=== PATIENT | female | born 1985 | race Caucasian/White ===

== ENCOUNTER 2017-04-04 17:01 | Emergency (ER) | payer OTHER ==
[~2017-04-04] VITALS: Ht 162.6 cm; Wt 90.7 kg
[~2017-04-04 17:01] MED LIST: AMBIEN 5 MG TABL5 M1 PO; ANTIVERT25 MG PO; AUGMENTIN 875875 MG PO; AZITHROMYCIN250 MG PO; AZO95 MG; BIRTH CONTROL; CITRATE OF MAG296 ML PO; CLARITIN10 M2 PO; COLACE100 MG PO; CORTISPORIN OTI10 M2 OTIC; DIFLUCAN150 M1 PO; FIORICET 50-321 EACH PO; FLAGYL500 M1 PO; FLAGYL500 MG PO; FLONASE 0.05%50 MCG NASAL; GABAPENTIN100 MG PO; GARAMYCIN5 ML OP; HALOPERIDOL 1 MG1 MG PO; IBUPROFEN 800800 M1 PO; LAMICTAL; MACROBID 100 M100 M1 PO; MACROBID 100 M100 M2 PO; NORCO 5-325 TA1 EACH PO; ONDANSETRON HCL4 M2 PO; SERTRALINE HCL100 MG PO; TRAMADOL 50 MG50 MG PO; TRILEPTAL 300300 MG PO; TRILEPTAL150 MG PO; XANAX 0.25 MG0.25 MG PO; XANAX 0.5 MG0.5 MG PO; ZOFRAN4 MG PO; ZOLOFT 50 MG TA50 M1 PO
[2017-04-04 18:56] LABS: ABSOLUTE NEUTROPHILS 4.3 thou/uL (1.4-8.2); BASOPHILS 0.2 % (0.0-2.0); HEMATOCRIT 38.8 % (37.0-47.0); HEMOGLOBIN 13.4 gm/dL (12.0-15.0); LYMPHOCYTES 31.1 % (24.0-44.0); MCH 32.1 pg (26.0-34.0); MCHC 34.6 g/dL (28.0-37.0); PLATELET COUNT 239 thou/uL (150-400); POLYS 61.7 % (36.0-66.0); RBC 4.17 mil/uL (4.20-5.00); RDW 12.8 % (10.5-14.5)
[2017-04-04 19:05] LABS: CALCIUM 8.9 mg/dL (8.5-10.1); CREATININE 0.8 mg/dL (0.6-1.0); POTASSIUM 3.3 mmol/L (3.5-5.1)
[2017-04-04] MEDS ORDERED: ZOLPIDEM TARTRA10 MG PO (19:07)
[2017-04-04] MEDS ORDERED: ADDERALL 20 MG20 MG PO (19:07)
[2017-04-04] MEDS ORDERED: NEURONTIN 300300 M1 PO (19:08)
[2017-04-04] MEDS ORDERED: CETIRIZINE HCL10 MG PO (19:08)
[2017-04-04] MEDS ORDERED: RANITIDINE HCL300 MG PO (19:09)
[2017-04-04 19:11] LABS: ALBUMIN 4.1 g/dL (3.4-5.0); TOTAL BILIRUBIN 0.2 mg/dL (<0.1-1.0); TOTAL PROTEIN 7.1 g/dL (6.4-8.2)
[2017-04-04 19:22] LABS: URINE BILIRUBIN NEGATIVE (Negative); URINE BLOOD NEGATIVE (Negative); URINE CLARITY CLEAR; URINE COLOR YELLOW; URINE GLUCOSE-RANDOM* NEGATIVE (Negative); URINE KETONES NEGATIVE (Negative); URINE LEUKOCYTES NEGATIVE (Negative); URINE NITRITE NEGATIVE (Negative); URINE PROTEIN (DIPSTICK) NEGATIVE (Negative); URINE SPECIFIC GRAVITY 1.015 (1.005-1.035); URINE UROBILINOGEN 0.2 E.U./dl (0.2-1.0)
[2017-04-04 20:08] LABS: AMP/METHAMP Negative (Negative); BARBITURATES Negative (Negative); BENZODIAZEPINES POSITIVE (Negative); COCAINE Negative (Negative); METHADONE Negative (Negative); OPIATES Negative (Negative); PCP Negative (Negative)
[2017-04-04] MEDS ORDERED: COLACE100 MG PO (21:24)
[2017-04-04] MEDS ORDERED: BENTYL 20 MG TA20 M1 PO (21:24)
[2017-04-04] MEDS ORDERED: ZOFRAN ODT8 MG PO (22:28)
[2017-12-08] MEDS ORDERED: CEFDINIR300 MG PO (20:55)
== END 2017-04-04 22:45 | disposition home or self-care (01) ==
LOC: ER 17:01
PROVIDERS: Emergency Medicine; Physician Assistant
DX: R10.11 Right upper quadrant pain (principal); F41.0 Panic disorder [episodic paroxysmal anxiety]; F31.9 Bipolar disorder, unspecified; F17.210 Nicotine dependence, cigarettes, uncomplicated; Z88.1 Allergy status to other antibiotic agents; Z88.6 Allergy status to analgesic agent

== ENCOUNTER 2017-08-28 15:19 | Emergency (ER) | payer OTHER ==
[~2017-08-28] VITALS: Ht 162.6 cm; Wt 90.7 kg
[~2017-08-28 15:19] MED LIST changes: +ADDERALL 20 MG20 MG PO; +BENTYL 20 MG TA20 M1 PO; +CETIRIZINE HCL10 MG PO; +NEURONTIN 300300 M1 PO; +RANITIDINE HCL300 MG PO; +ZOFRAN ODT8 MG PO; +ZOLPIDEM TARTRA10 MG PO
[2017-08-28] MEDS ORDERED: MOBIC15 MG PO (16:06)
[2017-08-28] MEDS ORDERED: ZOFRAN ODT4 MG PO (16:07)
[2017-08-28 16:32] VITALS: BP 146/96
== END 2017-08-28 16:20 | disposition home or self-care (01) ==
LOC: ER 15:19
DX: J01.90 Acute sinusitis, unspecified (principal); H92.02 Otalgia, left ear; R13.10 Dysphagia, unspecified; M54.2 Cervicalgia; F31.9 Bipolar disorder, unspecified; Z88.1 Allergy status to other antibiotic agents; Z88.6 Allergy status to analgesic agent; Z88.8 Allergy status to other drugs, medicaments and biological substances

== ENCOUNTER 2017-12-17 01:03 | Emergency (ER) | payer OTHER ==
[~2017-12-17] VITALS: Ht 162.6 cm; Wt 90.7 kg
--- NOTE | ~2017-12-17 | EKG ---
[address] [place] [address] ELECTROCARDIOGRAM REPORT Name: KIERRA HANKINS Room #: DEP ELHAM Espino#: [id number] Admission: 12/17/17 Attend Phys: Discharge: 12/17/17 Date of : 87 Report #: [id number] THIS REPORT FOR: //name// [facility] ED Test Date: 2017-12-17 Test Time: 02:05:34 Pat Name: KIERRA HANKINS Department: Room: Gender: F Construction Safety Manager: ELIDA : 1985 Requested By: Sukhjinder Clemens Order Number: [id number] MD: Luis Portillo Measurements Intervals [place] Rate: 72 P: 49 NM: 159 QRS: -20 QRSD: 88 T: 2 QT: 391 QTc: 428 Interpretive Statements Sinus rhythm Borderline left axis deviation Low voltage, precordial leads Probable anteroseptal infarct, old Compared to ECG 02/13/2004 13:17:51 Low QRS voltage now present Poor R-wave progression no longer present Myocardial infarct finding still present Electronically Signed On 12-18-2017 17:37:56 CDT by Luis Portillo [email or web address] <ELECTRONICALLY SIGNED> By: Luis Portillo MD 12/18/17 1737 [id number] Luis Portillo MD /EPI
[~2017-12-17 01:03] MED LIST changes: +CEFDINIR300 MG PO; +MOBIC15 MG PO; +ZOFRAN ODT4 MG PO
[2017-12-17 01:31] LABS: ABSOLUTE NEUTROPHILS 2.7 thou/uL (1.4-8.2); BASOPHILS 0.5 % (0.0-2.0); EOSINOPHILS 0.1 % (0.0-3.0); HEMATOCRIT 39.5 % (37.0-47.0); HEMOGLOBIN 13.5 gm/dL (12.0-15.0); LYMPHOCYTES 28.8 % (24.0-44.0); MCH 32.6 pg (26.0-34.0); MCHC 34.3 g/dL (28.0-37.0); MCV 95.2 fL (80.0-100.0); MONOCYTES 8.6 % (1.0-8.0); PLATELET COUNT 191 thou/uL (150-400); RBC 4.15 mil/uL (4.20-5.00); RDW 12.8 % (10.5-14.5); WBC 4.4 thou/uL (4.0-11.0)
[2017-12-17 01:46] LABS: ANION GAP 8 mmol/L (7-16); BUN 8 mg/dL (7-18); CALCIUM 9.2 mg/dL (8.5-10.1); CHLORIDE 98 mmol/L (98-107); CO2 29 mmol/L (21-32); CREATININE 0.7 mg/dL (0.6-1.0); GLUCOSE 84 mg/dL (74-106); POTASSIUM 3.4 mmol/L (3.5-5.1); SODIUM 135 mmol/L (136-145)
[2017-12-17 01:52] LABS: ALBUMIN 4.6 g/dL (3.4-5.0); SALICYLATE 3.5 mg/dL (2.8-20.0); SGOT 16 U/L (15-37); SGPT 26 U/L (30-65); TOTAL BILIRUBIN 0.4 mg/dL (<0.1-1.0); TOTAL PROTEIN 7.8 g/dL (6.4-8.2)
[2017-12-17 02:01] LABS: URINE BILIRUBIN NEGATIVE (Negative); URINE BLOOD NEGATIVE (Negative); URINE CLARITY CLEAR; URINE COLOR YELLOW; URINE GLUCOSE-RANDOM* NEGATIVE (Negative); URINE KETONES NEGATIVE (Negative); URINE LEUKOCYTES-REFLEX NEGATIVE (Negative); URINE NITRITE-REFLEX NEGATIVE (Negative); URINE PROTEIN (DIPSTICK) NEGATIVE (Negative); URINE SPECIFIC GRAVITY 1.025 (1.005-1.035); URINE UROBILINOGEN 0.2 E.U./dl (0.2-1.0)
[2017-12-17 02:14] LABS: AMP/METHAMP POSITIVE (Negative); BARBITURATES Negative (Negative); BENZODIAZEPINES POSITIVE (Negative); COCAINE Negative (Negative); METHADONE Negative (Negative); OPIATES Negative (Negative); PCP Negative (Negative)
[2017-12-17] MEDS ORDERED: DIPHENHIST50 MG PO (03:20)
[2017-12-17] MEDS ORDERED: CLEOCIN HCL150 MG PO (03:20)
[2017-12-17 04:03] VITALS: BP 155/86
== END 2017-12-17 04:07 | disposition home or self-care (01) ==
LOC: ER 01:03
PROVIDERS: Emergency Medicine
DX: S00.86XA Insect bite (nonvenomous) of other part of head, initial encounter (principal); R41.82 Altered mental status, unspecified; R42 Dizziness and giddiness; Z88.0 Allergy status to penicillin; Z88.1 Allergy status to other antibiotic agents; Z88.5 Allergy status to narcotic agent; Z88.8 Allergy status to other drugs, medicaments and biological substances; W57.XXXA Bitten or stung by nonvenomous insect and other nonvenomous arthropods, initial encounter; Y93.89 Activity, other specified; Y92.89 Other specified places as the place of occurrence of the external cause; Y99.8 Other external cause status

== ENCOUNTER 2018-04-21 21:23 | Emergency (ER) | payer OTHER ==
[~2018-04-21] VITALS: Ht 162.6 cm; Wt 90.3 kg
[~2018-04-21 21:23] MED LIST changes: +CLEOCIN HCL150 MG PO; +DIPHENHIST50 MG PO
[2018-04-21] MEDS ORDERED: NORFLEX100 MG PO ×2 (22:31→22:34)
[2018-04-21] MEDS ORDERED: NAPROSYN500 MG PO (22:31)
[2018-04-21 22:54] VITALS: BP 160/84
== END 2018-04-21 22:54 | disposition home or self-care (01) ==
LOC: ER 21:23
DX: S80.02XA Contusion of left knee, initial encounter (principal); M62.830 Muscle spasm of back; F41.0 Panic disorder [episodic paroxysmal anxiety]; F31.9 Bipolar disorder, unspecified; F17.210 Nicotine dependence, cigarettes, uncomplicated; Z88.0 Allergy status to penicillin; Z88.1 Allergy status to other antibiotic agents; Z88.6 Allergy status to analgesic agent; W00.0XXA Fall on same level due to ice and snow, initial encounter; Y93.29 Activity, other involving ice and snow; Y92.89 Other specified places as the place of occurrence of the external cause; Y99.8 Other external cause status

== ENCOUNTER 2018-12-16 17:59 | Emergency (ER) | payer OTHER ==
[~2018-12-16] VITALS: Ht 162.6 cm; Wt 90.7 kg
[~2018-12-16 17:59] MED LIST changes: +NAPROSYN500 MG PO; +NORFLEX100 MG PO
[2018-12-16 18:48] LABS: URINE BILIRUBIN NEGATIVE (Negative); URINE BLOOD NEGATIVE (Negative); URINE CLARITY CLEAR; URINE COLOR YELLOW; URINE GLUCOSE-RANDOM* NEGATIVE (Negative); URINE KETONES TRACE (Negative); URINE LEUKOCYTES-REFLEX TRACE (Negative); URINE NITRITE-REFLEX NEGATIVE (Negative); URINE PROTEIN (DIPSTICK) NEGATIVE (Negative); URINE UROBILINOGEN 0.2 E.U./dl (0.2-1.0)
[2018-12-16] MEDS ORDERED: ACETAMINOPHEN-1 EAC1 PO (19:19)
[2018-12-16] MEDS ORDERED: ZPAK PO (19:19)
[2018-12-16] MEDS ORDERED: NAPROSYN500 MG PO (19:19)
[2018-12-16 20:04] VITALS: BP 144/93
== END 2018-12-16 20:07 | disposition home or self-care (01) ==
LOC: ER 17:59
PROVIDERS: Emergency Medicine
DX: J18.9 Pneumonia, unspecified organism (principal); J06.9 Acute upper respiratory infection, unspecified; R51 Headache; F17.210 Nicotine dependence, cigarettes, uncomplicated; F90.9 Attention-deficit hyperactivity disorder, unspecified type; F98.8 Other specified behavioral and emotional disorders with onset usually occurring in childhood and adolescence; F31.9 Bipolar disorder, unspecified; F41.0 Panic disorder [episodic paroxysmal anxiety]; Z88.8 Allergy status to other drugs, medicaments and biological substances; Z88.0 Allergy status to penicillin; Z88.1 Allergy status to other antibiotic agents; Z88.6 Allergy status to analgesic agent